=== PATIENT | male | born 1955 | race Caucasian/White ===

== ENCOUNTER 2018-09-20 17:32 | Emergency (ER) | payer BC ==
[2018-09-20] MEDS ORDERED: LIDOCAINE 1% INJ-PF (10 MG/ML) 30 ML SDV INJ ONE (21:02)
[2018-09-20] MEDS ORDERED: DIPH/PERTUSS(ACELL)/TETANUS VAC/PF 0.5 ML SYR (>=10YO) IM ONE (21:07)
--- NOTE | 2018-09-20 21:07 | ER Document Report ---
ED General - General Chief Complaint: Laceration Stated Complaint: HAND LACERATION Time Seen by Provider: 09/20/18 21:01 Notes: 63M presents for laceration on L palm after drilling a piece of wood and the bit caught his hand. Tetanus not up to date. Has full ROM and sensation intact. Has full strength. No other complaints. TRAVEL OUTSIDE OF THE [place] IN LAST 30 DAYS: No - Related Data Allergies/Adverse Reactions: No Known Allergies Allergy (Unverified 09/20/18 17:35) Past Medical History - Social History Smoking Status: Never Smoker Chew tobacco use (# tins/day): No Drug Abuse: None Family History: None Patient has suicidal ideation: No Patient has homicidal ideation: No - Past Medical History Cardiac Medical History: Reports: Hx Hypercholesterolemia, Hx Hypertension Renal/ Medical History: Denies: Hx Peritoneal Dialysis Review of Systems - Review of Systems Constitutional: No symptoms reported EENT: No symptoms reported Cardiovascular: No symptoms reported Respiratory: No symptoms reported Gastrointestinal: No symptoms reported Genitourinary: No symptoms reported Male Genitourinary: No symptoms reported Musculoskeletal: No symptoms reported Skin: See HPI Hematologic/Lymphatic: No symptoms reported Neurological/Psychological: No symptoms reported Physical Exam - Vital signs Vitals: Temp Pulse Resp BP Pulse Ox 97.4 F 64 16 136/75 H 98 09/20/18 17:54 09/20/18 17:54 09/20/18 17:54 09/20/18 17:54 09/20/18 17:54 - Notes Notes: PHYSICAL EXAMINATION: Reviewed vital signs and charting by RN GENERAL: Alert, interacts well. No acute distress. HEAD: Normocephalic, atraumatic. EYES: Pupils equal, round. Extraocular movements intact. ENT: Oral mucosa moist NECK: Full range of motion. Supple. Trachea midline. EXTREMITIES: Moves all 4 extremities spontaneously. No edema, No cyanosis. PSYCH: Normal affect, normal mood. SKIN: Warm, dry, normal turgor. Large L-shaped laceration approximately 3 cm x 3 cm with additional 4 cm laceration L palm, minimal bleeding, wound clean. Course - Re-evaluation Re-evalutation: 09/20/18 21:06 Will give tetanus booster, pt does not want x-ray of hand. Full strength and normal range of motion preprocedure. Motor distal neurovascular exam 09/20/18 22:43 Patient with fairly complex superficial irregular laceration of left palm. 4-0 Ethilon used requiring 14 sutures total. Patient tolerated procedure well. Normal exam post procedure. Discharge instructions given. Patient instructed to follow-up in 7-10 days for suture removal. - Vital Signs Vital signs: Temp Pulse Resp BP Pulse Ox 97.4 F 64 16 136/75 H 98 09/20/18 17:54 09/20/18 17:54 09/20/18 17:54 09/20/18 17:54 09/20/18 17:54 Procedures - Laceration/Wound Repair Left Hand Wound length (cm): 10 Wound's Depth, Shape: Superficial, Irregular Laceration pre-procedure: Sterile PPE donned Anesthetic type: 1% Lidocaine Volume Anesthetic (mLs): 8 Wound explored: Clean, No foreign body removed Wound Debrided: Minimal Wound Repaired With: Sutures Suture Size/Type: 4:0, Ethilon Number of Sutures: 14 Layer Closure?: No Post-procedure wound care: Sterile dressing applied Post-procedure NV exam normal: Yes Complications: No Discharge - Discharge Clinical Impression: Laceration Condition: Good Disposition: HOME, SELF-CARE Instructions: Antibiotic Ointment Protection (OM), Laceration Care ([facility]) Additional Instructions: Please return to your primary doctor, the ED, or an urgent care in 7 days for suture removal. Return immediately if you develop spreading redness around the wound, pus from the wound, worsening pain, or a fever of >101. Keep the area clean and dry. Wash gently with soap and water twice daily and cover with antibiotic ointment.
[2018-09-20] MEDS ORDERED: HYDROCODONE/ACETAMINOPHEN 5-325 MG (6 TAB/ER DISP) PO PRN (22:47)
[2018-09-20 23:03] VITALS: BP 140/80
== END 2018-09-20 23:10 | disposition home or self-care (01) ==
LOC: ER 17:32
PROC: 0HQGXZZ Repair Left Hand Skin, External Approach (ICD-10-PCS; principal; 2018-09-20)
DX: S61.412A Laceration without foreign body of left hand, initial encounter (principal); W45.8XXA Other foreign body or object entering through skin, initial encounter; I10 Essential (primary) hypertension
CPT/HCPCS: 99282; 90471; 90715; 12004; J3490